=== PATIENT | male | born 1950 | race Caucasian/White ===

== ENCOUNTER → 2019-01-10 | Outpatient (CLI) | payer OTHER ==
[2019-01-10 15:55] LABS: PROTHROMBIN TIME 30.1 SEC (11.4-15.4)
[2019-01-10 16:07] LABS: ANION GAP 11 (5-19); BLOOD UREA NITROGEN 35 mg/dL (7-20); CALCIUM 9.6 mg/dL (8.4-10.2); CARBON DIOXIDE 25 mmol/L (22-30); CHLORIDE 101 mmol/L (98-107); GLUCOSE 94 mg/dL (75-110); POTASSIUM 5.1 mmol/L (3.6-5.0)
== END ==
LOC: OD 15:03
PROVIDERS: ATTEND Family Medicine
DX: I10 Essential (primary) hypertension (principal); I50.22 Chronic systolic (congestive) heart failure; Z79.01 Long term (current) use of anticoagulants
CPT/HCPCS: 36415; 80048; 85610

== ENCOUNTER → 2019-03-13 | Outpatient (CLI) | payer OTHER ==
--- NOTE | 2019-03-13 13:29 | RADIOLOGY REPORT (SQ) ---
EXAM DESCRIPTION: CHEST PA/LATERAL COMPLETED DATE/TIME: 03/13/2019 1:01 pm REASON FOR STUDY: CHRONIC SYSTOLIC (CONGESTIVE) HEART FAILURE COMPARISON: 01/04/2019. EXAM PARAMETERS: NUMBER OF VIEWS: two views TECHNIQUE: Digital Frontal and Lateral radiographic views of the chest acquired. RADIATION DOSE: NA LIMITATIONS: none FINDINGS: LUNGS AND PLEURA: No opacities, masses or pneumothorax. Trace bilateral effusions, stable . MEDIASTINUM AND HILAR STRUCTURES: No masses or contour abnormalities. HEART AND VASCULAR STRUCTURES: Heart normal size. No evidence for failure. Aortic atherosclerosis. BONES: No acute findings. HARDWARE: None in the chest. OTHER: No other significant finding. IMPRESSION: Stable trace bilateral effusions. No other evidence of acute intrathoracic process. TECHNICAL DOCUMENTATION: JOB ID: [id number] [employer]- All Rights Reserved Reading location - IP/workstation name: [email or web address]
== END ==
LOC: OD 12:44
PROVIDERS: ATTEND Family Medicine
DX: I50.22 Chronic systolic (congestive) heart failure (principal)
CPT/HCPCS: 71046

== ENCOUNTER 2020-01-27 11:13 | Emergency (ER) | payer MEDICARE, OTHER ==
[2020-01-27 11:21] VITALS: BP 148/71
[2020-01-27] MEDS ORDERED: LIDOCAINE 1% INJ (10 MG/ML) 10 ML MDV INJ ONE (12:23)
--- NOTE | 2020-01-27 12:28 | ER Document Report ---
ED General - General Chief Complaint: Toe Injury Stated Complaint: TOE PAIN Primary Care Provider: JENIFER REESE MD [Primary Care Provider] - Follow up as needed Notes: Patient is 69-year-old white male with history of OR, pacemaker plantation who is on Coumadin regularly with a goal INR of 2.0 who presents today with a chief complaint of pain to the right great toe after an injury that occurred 2 days ago. The patient reports that he was try to get something off of a high shelf when a heavy metal bar fell striking the toe. He states it was immediately painful. Has been sore since that time. Describes it as a pressure inside the toe. States that he tried to relieve some the pressure by poking the skin just proximal to the proximal nail/ lunula. He states since that time and has consistently oozed blood. He reports a purplish color under the nail. He went to see his PCP, Dr. Reese today who advised the patient come to the emergency department for further evaluation of the toe. He reports that they did check his INR there that we do not have the results. He denies any other pain or injuries. No numbness tingling or weakness. TRAVEL OUTSIDE OF THE [place] IN LAST 30 DAYS: No - Related Data Allergies/Adverse Reactions: No Known Drug Allergies Allergy (Verified 12/30/18 02:44) Home Medications: warfarin 5mg, aspirin 81mg, metoprolol 100mg, losartan 25mg, atorvastatin 20mg, furosemide 20mg, trazadone 50mg Past Medical History - Social History Smoking Status: Former Smoker Frequency of alcohol use: Occasional Drug Abuse: None Family History: Reviewed & Not Pertinent - Past Medical History Cardiac Medical History: Reports: Hx Atrial Fibrillation, Hx Coronary Artery Disease, Hx Heart Attack, Hx Hypercholesterolemia, Hx Hypertension Renal/ Medical History: Denies: Hx Peritoneal Dialysis Past Surgical History: Reports: Hx Cardiac Surgery - pacemaker/defibrilator, Hx Orthopedic Surgery Review of Systems - Review of Systems Constitutional: denies: Fever EENT: denies: Throat pain Cardiovascular: denies: Chest pain Respiratory: denies: Short of breath Gastrointestinal: denies: Abdominal pain Genitourinary: denies: Pain Male Genitourinary: denies: Testicular pain Musculoskeletal: Joint pain Skin: Change in color Hematologic/Lymphatic: Easy bleeding Neurological/Psychological: denies: Numbness Physical Exam - Vital signs Vitals: Temp Pulse Resp BP Pulse Ox 97.8 F 115 H 20 148/71 H 99 01/27/20 11:20 01/27/20 11:20 01/27/20 11:20 01/27/20 11:20 01/27/20 11:20 - General General appearance: Appears well, Alert In distress: None - Respiratory Respiratory status: No respiratory distress Chest status: Nontender Breath sounds: Normal Chest palpation: Normal - Cardiovascular Rhythm: Regular Heart sounds: Normal auscultation - Extremities Foot: Other - Full passive range of motion of the right great toe. There is an obvious subungual hematoma and at the right nail plate. Good capillary refill distally of the great toe. Tenderness is diffuse. No active bleeding noted. 2+ radial on the right. Gait limited by pain. No erythema or increased warmth. No purulent drainage. - Neurological Neuro grossly intact: Yes Cognition: Normal Orientation: AAOx4 - Psychological Associated symptoms: Normal affect, Normal mood - Skin Skin Color: Other - As described above to the right great toe otherwise no acute process noted on exposed skin Course - Re-evaluation Re-evalutation: 01/27/20 13:54 Foot x-ray showing no acute process to the left great toe per radiologist. Incidentally there was a metallic appearing foreign body in the tissues between the second and third metatarsals. Patient was informed of this, he denies any injury to this area or pain to this area. States he does not recall any punctures in the past or any other penetrating injury. States he is never had any issues with pain or problems with that part of the foot. He will discuss with his primary. It is unrelated to this incident. His INR was elevated above 3 today, his goal is 2.0. Although patient may receive some symptomatic relief from nail removal is felt to be unwise at this juncture given his elevated INR. He will call Dr. Reese today for further Coumadin recommendations. He was already told by Dr. Reese to hold his dose this evening. He will see Dr. Reese this coming for follow-up as already scheduled. His tetanus was updated today given the self-inflicted puncture. We discussed wound care measures. Counseled him regarding the importance of outpatient follow-up for wound recheck and INR recheck. Advised to return here or any ER immediately with any new, persistent or worsening symptoms. He verbalized understood and agreed. - Vital Signs Vital signs: Temp Pulse Resp BP Pulse Ox 97.8 F 115 H 20 148/71 H 99 01/27/20 11:20 01/27/20 11:20 01/27/20 11:20 01/27/20 11:20 01/27/20 11:20 - Laboratory Laboratory results interpreted by me: 01/27/20 12:40 PT 32.5 H Discharge - Discharge Clinical Impression: Subungual hematoma, Elevated INR (international normalized ratio) Toe contusion Qualifiers: Encounter type: initial encounter Toe: great toe Damage to nail status: without damage Laterality: unspecified laterality Qualified Code(s): S90.119A - Contusion of unspecified great toe without damage to nail, initial encounter Condition: Stable Disposition: HOME, SELF-CARE Instructions: Subungual Hematoma ([facility]) Additional Instructions: Please follow-up with Dr. Reese this as scheduled and discussed for recheck and reevaluation. Please return here or any ER immediately with any new, persistent or worsening symptoms. Referrals: JENIFER REESE MD [Primary Care Provider] - Follow up as needed
[2020-01-27] MEDS ORDERED: DIPH/PERTUSS(ACELL)/TETANUS VAC/PF 0.5 ML SYR (>=10YO) IM ONE (12:33)
[2020-01-27 12:59] LABS: INTERNATIONAL RATION (INR) 3.19; PROTHROMBIN TIME 32.5 SEC (11.4-15.4)
--- NOTE | 2020-01-27 13:24 | RADIOLOGY REPORT (SQ) ---
EXAM DESCRIPTION: TOE RIGHT IMAGES COMPLETED DATE/TIME: 01/27/2020 1:03 pm REASON FOR STUDY: great toe trauma COMPARISON: None. NUMBER OF VIEWS: Three views. TECHNIQUE: AP, lateral, and oblique images acquired of the right first toe. LIMITATIONS: None. FINDINGS: MINERALIZATION: Normal. BONES: No acute fracture or dislocation. No worrisome bone lesions. JOINTS: No effusions. SOFT TISSUES: Soft tissue swelling and bandage material overlies distal 1st digit. There is a 7.3 mm radiopaque linear metallic density overlying the plantar soft tissues between the 2nd and 3rd metata rsals. OTHER: No other significant finding. IMPRESSION: 1. Soft tissue swelling and bandage material over the distal 1st digit. No definite ac ashok bony abnormality. 2. 7.3 mm linear metallic density overlying the plantar soft tissues between the 2nd and 3rd metatar sals compatible with foreign body. COMMENT: SITE OF TRAUMA/COMPLAINT MARKED/STAMP COMPLETED: YES. TECHNICAL DOCUMENTATION: JOB ID: [id number] 2010 [employer]- All Rights Reserved Reading location - IP/workstation name: [email or web address]
== END 2020-01-27 13:57 | disposition home or self-care (01) ==
LOC: ER 11:13
DX: S90.211A Contusion of right great toe with damage to nail, initial encounter (principal); M79.674 Pain in right toe(s); W22.8XXA Striking against or struck by other objects, initial encounter; Z79.899 Other long term (current) drug therapy; Z79.82 Long term (current) use of aspirin; Z79.01 Long term (current) use of anticoagulants; Z87.891 Personal history of nicotine dependence; I25.10 Atherosclerotic heart disease of native coronary artery without angina pectoris; I25.2 Old myocardial infarction; I10 Essential (primary) hypertension
CPT/HCPCS: 36415; 85610; 90471; 90715; 99284